=== PATIENT | female | born 1970 ===

== ENCOUNTER 2017-09-04 09:46 | Observation (INO) | payer MEDICAID ==
--- NOTE | 2017-09-04 10:03 | ED PDOC ---
Arrival/HPI - General Chief Complaint: Weakness/Neurological Deficit Time Seen by Provider: 09/04/17 09:50 Historian: Patient - Critical Care Critical Care Minutes: 30 minutes - History of Present Illness Narrative History of Present Illness (Text): 09/04/17 10:03 A 46 year old female, whose past medical history includes a fatty liver, presents to the emergency department for pressure on left side of head with vision changes, which began last night. The patient states her symptoms went away, but about 1 hour prior to arrival the symptoms returned and in addition to her previous symptoms she now began to feel left sided facial numbness and left arm numbness. The patient reports there is a history of stroke in her family. The patient denies any fever, trauma, cough, or any other complaints at this time. PMD: Dr. Valles Time/Duration: 24 hours Symptom Onset: Sudden Activities at Onset: Light Context: Home Past Medical History - Provider Review Nursing Documentation Reviewed: Yes - Infectious Disease Hx of Infectious Diseases: None - Gastrointestinal Other/Comment: Gallbladder stones. Fatty Liver - Psychiatric Hx Substance Use: No - Surgical History Hx Section: Yes (x4) Family/Social History - Physician Review Nursing Documentation Reviewed: Yes Family/Social History: Unknown Family HX Smoking Status: Never Smoked Hx Alcohol Use: No Hx Substance Use: No Allergies/Home Meds Allergies/Adverse Reactions: Allergies No Known Allergies Allergy (Verified 09/04/17 09:54) Home Medications: Home Meds Medication Instructions Recorded Confirmed No Known Home Med 09/04/17 09/04/17 Review of Systems - Physician Review All systems were reviewed & negative as marked: Yes - Review of Systems Constitutional: absent: Fevers Eyes: Vision Changes. absent: Eye Pain ENT: absent: Hearing Changes Respiratory: absent: Cough Cardiovascular: absent: Chest Pain Neurological: Headache (pressure - headache), Other (numbness to left side of face and left arm) Physical Exam Vital Signs Reviewed: Yes Vital Signs Temp Pulse Resp BP Pulse Ox 09/04/17 09:52 16 135/84 100 09/04/17 09:51 98.3 F 78 18 135/84 98 Temperature: Afebrile Blood Pressure: Normal Pulse: Regular Respiratory Rate: Normal Appearance: Positive for: Well-Appearing, Non-Toxic, Comfortable Pain Distress: None Mental Status: Positive for: Alert and Oriented X 3 - Systems Exam Head: Present: Atraumatic, Normocephalic Pupils: Present: PERRL, Other (Visual Acuity 20/20 OS/OD and b/l; No glasses or contacts) Extroacular Muscles: Present: EOMI Conjunctiva: Present: Normal Mouth: Present: Moist Mucous Membranes Pharnyx: Present: Normal Neck: Present: Normal Range of Motion Respiratory/Chest: Present: Clear to Auscultation, Good Air Exchange. No: Respiratory Distress, Accessory Muscle Use Cardiovascular: Present: Regular Rate and Rhythm, Normal S1, S2. No: Murmurs Abdomen: Present: Normal Bowel Sounds. No: Tenderness, Distention, Peritoneal Signs Back: Present: Normal Inspection Upper Extremity: Present: Normal Inspection. No: Cyanosis, Edema Lower Extremity: Present: Normal Inspection. No: Edema Neurological: Present: GCS=15, CN II-XII Intact, Speech Normal, Motor Func Grossly Intact, Normal Sensory Function, Normal Cerebellar Funct, Gait Normal, Memory Normal Skin: Present: Warm, Dry, Normal Color. No: Rashes Psychiatric: Present: Alert, Oriented x 3, Normal Insight, Normal Concentration Medical Decision Making ED Course and Treatment: 09/04/17 10:00 Impression: A 46 year old female with left sided facial numbness and tingling to the left arm. Differential Diagnosis included but are not limited to: Migraine vs. CVA vs. TIA Plan: -- Head CT -- EKG -- Chest X-ray -- Labs -- Reassess and disposition Progress Notes: 09/04/17 10:10 EKG: Ordered, reviewed, and independently interpreted the EKG. Rate : 65 BPM Rhythm : NSR Interpretation : No ST-segment elevations or depressions, no T-wave inversions, normal intervals. Comparison : No previous EKG for comparison. 09/04/17 10:[address] Phillips, Neurologist. CT Head negative. Will reevaluate after labs. 09/04/17 11:56 Patient's symptoms resolved with only mild tingling sensation in her arm. NIHSS zero on reevaluation. Discussed case with Dr. Phillips again who recommends placing on observation. Discussed case with Dr. Sexton who agrees to admission. - Lab Interpretations Lab Results: 09/04/17 10:10 09/04/17 10:10 Lab Results 09/04/17 10:10: Blood Type O POSITIVE, Antibody Screen Negative, BBK History Checked Patient has bt 09/04/17 10:10: Sodium 142, Potassium 3.7, Chloride 101, Carbon Dioxide 29, Anion Gap 16, BUN 13, Creatinine 0.8, Est GFR ( Amer) > 60, Est GFR (Non- Af Amer) > 60, Random Glucose 76, Calcium 9.6, Total Bilirubin 0.8, AST 35, ALT 41, Alkaline Phosphatase 64, Troponin I < 0.01, Total Protein 7.8, Albumin 4.8, Globulin 3.0, Albumin/Globulin Ratio 1.6, Triglycerides 170 H, Cholesterol 225 H , LDL Cholesterol Direct 150 H, HDL Cholesterol 39 09/04/17 10:10: PT 11.9, INR 1.08, APTT 34.6 09/04/17 10:10: WBC 5.3, RBC 4.31, Hgb 12.9, Hct 39.5, MCV 91.6, MCH 29.9, MCHC 32.7, RDW 12.7, Plt Count 323, MPV 9.2, Gran % 50.4, Lymph % (Auto) 37.3 H, [place] % (Auto) 5.4, Eos % (Auto) 6.0 H, Baso % (Auto) 0.9, Gran # 2.68, Lymph # 2.0, [place] # 0.3, Eos # 0.3, Baso # 0.05 - RAD Interpretation Radiology Orders: 09/04/17 09:55 HEAD W/O (CODE STROKE) [CT] Stat 09/04/17 09:56 CHEST PORTABLE [RAD] Stat - Medication Orders Current Medication Orders: Discontinued Medications Aspirin (Aspirin) 325 mg PO STAT STA Stop: 09/04/17 10:46 Last Admin: 09/04/17 10:56 Dose: 325 mg NIHSS Scale ([place]) Time Performed: 09:51 - How Severe is the Stoke Baseline Level of Consciousness: 0=Alert LOC to Questions: 0=Both comments correct LOC to commands: 0=Obeys both correctly Best Gaze: 0=Normal Visual: 0=No visual loss Facial: 0=Normal Motor Arm - Left: 0=No drift Motor Arm - Right: 0=No drift Motor Leg - Left: 0=No drift Motor Leg - Right: 0=No drift Limb Ataxia: 0=Absent Sensory: 0=Normal Best Language: 0=No aphasia Dysarthia: 0=Normal articulation Extinction & Inattention (Neglect): 0=Normal, no object Score: 0 Risk Level: No Stroke Risk rTPA Inclusion/Exclusion - Refusal of Treatment Patient Refused Treatment: No - Inclusion Criteria for Altepase Patient is 18 years or Older: Yes The Clinical Diagnosis of Ischemic Stroke That is Causing a Potentially Disabling Neurological Deficit: Yes Time of Onset is Well Established to be Less Than 270 Minute Before Treatment Would Begin: Yes Risk/Benefit Discussed With Patient/Family Member Present: No - Warning to TPA With Conditions Following Conditions Weighed Against Anticipated Benefit: Yes Condition: Stroke Serevity Too Mild, Rapid Improvement - Scribe Statement The provider has reviewed the documentation as recorded by the Dixieibalvin Zuñiga Provider Scribe Attestation: All medical record entries made by the Scribe were at my direction and personally dictated by me. I have reviewed the chart and agree that the record accurately reflects my personal performance of the history, physical exam, medical decision making, and the department course for this patient. I have also personally directed, reviewed, and agree with the discharge instructions and disposition. Disposition/Present on Arrival - Present on Arrival Any Indicators Present on Arrival: No History of DVT/PE: No History of Uncontrolled Diabetes: No Urinary Catheter: No History of Decub. Ulcer: No History Surgical Site Infection Following: None - Disposition Have Diagnosis and Disposition been Completed?: Yes Diagnosis: TIA (transient ischemic attack) Disposition: HOSPITALIZED Disposition Time: 11:57 Patient Plan: Observation Condition: IMPROVED Referrals: Bea Rasheed MD [Primary Care Provider] - Follow up with primary Forms: [employer] (Bulgarian)
--- NOTE | 2017-09-04 10:28 | CT ---
PROCEDURE: CT HEAD WITHOUT CONTRAST. HISTORY: left facial and arm numbness r/o cva COMPARISON: None available. TECHNIQUE: Axial computed tomography images were obtained through the head/brain without intravenous contrast. Radiation dose: Total exam DLP = 678.13 mGy-cm. This CT exam was performed using one or more of the following dose reduction techniques: Automated exposure control, adjustment of the mA and/or kV according to patient size, and/or use of iterative reconstruction technique. FINDINGS: HEMORRHAGE: No intracranial hemorrhage. BRAIN: No mass effect or edema. No atrophy or chronic microvascular ischemic changes. VENTRICLES: Unremarkable. No hydrocephalus. CALVARIUM: Unremarkable. PARANASAL SINUSES: Unremarkable as visualized. No significant inflammatory changes. MASTOID AIR CELLS: Unremarkable as visualized. No inflammatory changes. OTHER FINDINGS: None. IMPRESSION: No evidence of acute intracranial hemorrhage territorial infarct mass effect or midline shift.
[2017-09-04 10:30] LABS: BASO # 0.05 K/mm3 (0.0-2.0); BASO % 0.9 % (0.0-3.0); EOS # 0.3 (0.0-0.7); GRAN # 2.68 (1.4-6.5); GRAN % 50.4 % (50.0-68.0); HEMATOCRIT 39.5 % (36.0-48.0); LYMPH % 37.3 % (22.0-35.0); MEAN CELL VOLUME 91.6 fl (80.0-105.0); MEAN CORPUSCULAR HEMOGLOBIN 29.9 pg (25.0-35.0); MEAN CORPUSCULAR HGB CONC 32.7 g/dl (31.0-37.0); MEAN PLATELET VOLUME 9.2 fl (7.0-11.0); MONO # 0.3 (0.1-0.6); MONO % 5.4 % (1.0-6.0); RED CELL DISTRIBUTION WIDTH 12.7 % (11.5-14.5); WHITE BLOOD COUNT 5.3 10^3/ul (4.5-11.0)
[2017-09-04 10:39] LABS: ALB/GLOB RATIO 1.6 (1.1-1.8); ALKALINE PHOSPHATASE 64 U/L (38-126); ALT/SGPT 41 U/L (7-56); AST/SGOT 35 U/L (14-36); BILIRUBIN,TOTAL 0.8 mg/dL (0.2-1.3); BLOOD UREA NITROGEN 13 mg/dL (7-21); CALCIUM 9.6 mg/dL (8.4-10.5); CARBON DIOXIDE 29 mmol/L (21-33); CHLORIDE 101 mmol/L (98-107); CHOLESTEROL 225 mg/dL (130-200); GFR AFRICAN-AMERICAN > 60; GLUCOSE,RANDOM 76 mg/dL (70-110); POTASSIUM 3.7 mmol/L (3.6-5.0); SODIUM 142 mmol/L (132-148); TOTAL PROTEIN 7.8 g/dL (5.8-8.3)
[2017-09-04 10:41] LABS: INR 1.08 (0.93-1.08); PARTIAL THROMBOPLASTIN TIME 34.6 Seconds (25.1-36.5)
[2017-09-04 10:55] LABS: TROPONIN I < 0.01 ng/mL
--- NOTE | 2017-09-04 13:14 | RAD ---
HISTORY: r/o cva COMPARISON: No prior. FINDINGS: LUNGS: No active pulmonary disease. PLEURA: No significant pleural effusion identified, no pneumothorax apparent. CARDIOVASCULAR: Normal. OSSEOUS STRUCTURES: No significant abnormalities. VISUALIZED UPPER ABDOMEN: Normal. OTHER FINDINGS: None. IMPRESSION: No active disease.
[2017-09-04 16:56] VITALS: BMI 29.9
--- NOTE | 2017-09-04 20:48 | CARD ---
APPROVED REPORT EKG Measurement Heart [id number] <Conclusion> Normal sinus rhythm Normal ECG
--- NOTE | 2017-09-05 05:57 | HP ---
CHIEF COMPLAINT: Tingling and numbness of the left side of her face and arm. HISTORY OF PRESENT ILLNESS: This is a 46-year-old female with no significant history of hypertension and migraine headaches who presented with complaining of left face side numbness mostly localized in supraorbital area and frontal area, also left arm numbness. She started with symptoms yesterday morning , she denied any headaches. Her symptoms improved, but this morning, she developed numbness again and decided to come to the emergency room for evaluation. She denied any headaches today. She denied any weakness, blurry vision, or dizziness. PAST MEDICAL HISTORY: Significant for cholelithiasis. PAST SURGICAL HISTORY: Significant for . ALLERGIES: SHE DENIES ANY ALLERGIES. MEDICATIONS: She is not taking any medications. FAMILY HISTORY: Significant for history of stroke in grandmother and history of vein thrombosis in mother. SOCIAL HISTORY: The patient denies any smoking, alcohol, or drug use. 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 She lives with her family. She is independent of her activity of daily living. REVIEW OF SYSTEMS: She denies any fever, loss of appetite, or weight loss. She denies any blurry vision. She denies any dysphagia or sore throat. She denies any neck pain. She denies any cough, shortness of breath, or chest pain. She denies any history of palpitation. She denies any abdominal pain, nausea, vomiting, diarrhea, or constipation. The patient denies any flank pain, dysuria, or hematuria. The patient denies any headache, blurry vision, or dizziness complaining of intermittent tingling and numbness on her left side of the face and left arm. PHYSICAL EXAMINATION: GENERAL: The patient is alert, awake, and oriented, in no acute formal distress. VITAL SIGNS: Stable. The patient was afebrile. Temperature was 98.3, her pulse was 78 and regular, blood pressure 135/84, respiratory rate 18, oxygen saturation was 98% on room air. HEENT: Head is normocephalic and atraumatic. Eyes with pupils reactive to light. No jaundice. Oral mucosa was moist. NECK: Supple. No neck masses. No JVD. No thyromegaly. No neck tenderness. LUNGS: Clear to auscultation. HEART: Regular rhythm and rate. ABDOMEN: Soft, nontender, and nondistended. EXTREMITIES: With no edema. NEUROLOGIC: Alert, awake, and oriented to person. No sensory or motor deficit. No pathological reflexes. DIAGNOSTIC TESTS: CAT scan of the head showed no active bleeding, acute bleeding, or any other pathology. Chest x-ray shows no active disease. EKG shows normal sinus rhythm with no ST-T changes. LABORATORY DATA: Showed normal CBC and chemistry. Her cholesterol is elevated with LDL 150 and total cholesterol 225. ASSESSMENT: 1. A 46-year-old female with intermittent episodes of left side numbness, rule out transient ischemic attack, very unlikely acute cerebrovascular accident. 2. Hyperlipidemia. PLAN OF TREATMENT: Will be admitted for observation. Neurologist was called and counseled. Continue neurological observation. We will order MRI of the brain without contrast. Continue aspirin one tablet daily. Bea Rasheed MD MTDJules
[2017-09-05 10:44] VITALS: RESP 20
--- NOTE | 2017-09-05 14:17 | MRI ---
PROCEDURE: MRI BRAIN WITHOUT CONTRAST HISTORY: r/o tia COMPARISON: None. TECHNIQUE: Multiplanar, multisequence MR images of the brain were obtained without intravenous contrast enhancement. FINDINGS: HEMORRHAGE: None DWI: No evidence of an acute or early subacute infarction. BRAIN PARENCHYMA: No mass effect or edema. No atrophy or chronic microvascular ischemic changes. VENTRICLES: Unremarkable. No hydrocephalus. CRANIUM: Unremarkable. ORBITS: Grossly unremarkable. PARANASAL SINUSES/MASTOIDS: Clear VASCULAR SYSTEM: Skull base flow voids intact. OTHER FINDINGS: None. IMPRESSION: Unremarkable non contrast enhanced MRI of the brain.
[2017-09-05 17:14] VITALS: BP 118/77; PULSE 70; TEMP 98.3; O2SAT 99
--- NOTE | 2017-09-05 17:44 | CON ---
NEUROLOGY CONSULTATION REPORT DATE: REASON FOR CONSULTATION: Left-sided numbness, questionable TIA. HISTORY OF PRESENT ILLNESS: The patient is a 46-year-old female who was in usual state of health until one day before when she noticed some numbness on the left hand. Yesterday morning, she felt some numbness and tingling sensation in the left hand as well as left side of the lips. This lasted for a few minutes and after that, she started experiencing some pressure on the left side of the head. She did not have any nausea or vomiting associated with it. Did not have any focal weakness in arms or legs. She said her grandmother had stroke, so she decided to come to the Emergency Room. Denies any other complaints. At the moment, she feels fine. REVIEW OF SYSTEMS: Denies any headache, dizziness, chest pain, shortness of breath, abdominal pain, constipation, diarrhea, dysuria, pyuria, cough, or sputum production. PAST MEDICAL HISTORY: None. MEDICATIONS AT HOME: None. ALLERGIES: NO KNOWN DRUG ALLERGIES. SOCIAL HISTORY: Denies smoking, use of alcohol, or illicit drugs. FAMILY HISTORY: Reviewed and noncontributory to the case. PHYSICAL EXAMINATION GENERAL: The patient is a middle-aged pleasant female, lying on the bed in no acute distress. VITAL SIGNS: Blood pressure is 125/70, heart rate is 70 per minute, breathing at a rate of 16 per minute, temperature is 98 degrees Fahrenheit. HEENT: Head normocephalic and atraumatic. NECK: Supple. There are no carotid bruits. LUNGS: Clear. CARDIOVASCULAR: S1 and S2 audible. No murmurs. ABDOMEN: Soft and nontender. Bowel sounds are present. NEUROLOGIC: Mental status: She is awake, alert and oriented to time, place, and person. Her speech is fluent. Naming and repetition is normal. Memory and cognition are intact. Cranial nerve examination: Pupils are 4 mm, bilaterally reactive to light. Visual llanes are full. Extraocular movements are intact. There is no facial asymmetry. She is moving all four extremities symmetrically. Plantars are downgoing bilaterally. Cerebellar examination, [id number] shows no dysmetria. Gait is narrow based. Cerebellar examination shows no dysmetria. Sensory examination is intact to soft touch, pinprick, and vibrations. LABORATORY DATA: Reviewed, shows WBC of 5.3, hemoglobin 12.9, hematocrit of 39.5, and platelets of 323. Sodium is 142, potassium 3.7, chloride of 101, carbon dioxide 29, BUN of 13, creatinine of 0.8, and glucose of 76. She had a CT scan of the head done, which was negative for any acute intracranial pathology. Her LDL is 150 and cholesterol is 225. IMPRESSION: Status post numbness and tingling sensation in the left hand and left side of the face, which appears to be cheiro-oral numbness followed by headaches, likely secondary to migraine accompaniment. Rule out any other pathology. RECOMMENDATIONS: 1. The patient to have MRI of the brain without contrast. 2. The patient had an electroencephalogram done, which is normal. 3. The patient was started on atorvastatin, which is to be continued because of her underlying hypercholesterolemia. 4. The patient was also started on aspirin for possible TIA; however, I doubt the patient had a TIA. 5. The patient did have a carotid Doppler study as well. 6. If the patient's workup is negative, she may be discharged today with outpatient followup. Thank you for the opportunity to participate in the care of this patient. Vanesa Phillips MD
--- NOTE | 2017-09-06 13:51 | DS ---
HISTORY OF PRESENT ILLNESS: The patient was admitted for left face numbness. The patient remains in remote telemetry for observation. She is doing better. She denies any numbness, headache, or dizziness. PHYSICAL EXAMINATION: GENERAL: The patient is alert, awake, and oriented. VITAL SIGNS: Stable. Blood pressure 105/51, temperature 97.8, pulse 69, and respiratory rate 20. HEENT: Head is normocephalic, atraumatic. Oral mucosa is moist. NECK: Supple. LUNGS: Clear to auscultation. HEART: Regular rhythm and rate. ABDOMEN: Soft, nontender, nondistended. NEUROLOGIC: Normal with no sensory, motor deficits. DIAGNOSTIC DATA: MRI this morning showed no intracerebral pathology. The patient had EEG and carotid artery ultrasound which reports are still pending. ASSESSMENT: 1. A 46-year-old female with intermittent episodes of left side numbness, acute cerebrovascular accident was ruled out. 2. Hyperlipidemia. PLAN OF TREATMENT: The patient will be discharged home today, advised to follow up with primary care doctor next week. We will monitor and reevaluate after we obtain EEG and carotid Doppler studies. Bea Rasheed MD MTDD
--- NOTE | 2017-09-08 08:08 | EEG ---
ELECTROENCEPHALOGRAM REPORT DATE: 09/05/2017 INTRODUCTION: This is a digitally recorded EEG monitoring using standard EEG montages. BACKGROUND RHYTHM: The EEG shows a background activity of 9 Hz delta activity in parietooccipital region. The EEG activity is bilaterally symmetrical and synchronous. There is attenuation of the background activity on eye opening. Drowsiness was noted by slowing of the background activity. ABNORMAL POTENTIALS: No spike, sharp waves or focal slowing was seen. PHOTIC STIMULATION AND HYPERVENTILATION: Photic stimulation did not reveal any abnormality. Hyperventilation was not performed. IMPRESSION: Normal electroencephalogram. No epileptiform activity is seen in this electroencephalogram recording. Vanesa Phillips MD
== END 2017-09-05 18:47 | disposition home or self-care (01) ==
LOC: ED 09:46 → ERH 11:49 → 3RNO 14:07
PROVIDERS: ADMIT Family Medicine; ATTEND Family Medicine
DX: R20.0 Anesthesia of skin (principal); R20.2 Paresthesia of skin; E78.5 Hyperlipidemia, unspecified; K80.20 Calculus of gallbladder without cholecystitis without obstruction; Z82.3 Family history of stroke
CPT/HCPCS: 70450; 70551; 71010; 80053; 80061; 82948; 83036; 84484; 85025; 85610; 85730; 86850; 86900; 93005; 93880; 95812; 97116; 97161; 99285; G0378; G8978; G8979; G8980